=== PATIENT | male | born 1990 | race Caucasian/White ===

== ENCOUNTER 2018-02-08 07:44 | Emergency (ER) | payer OTHER ==
[~2018-02-08] VITALS: Ht 177.8 cm; Wt 86.0 kg
[~2018-02-08 07:44] MED LIST: AMOXICILLIN/CL875 MG OR; AMOXICILLIN500 MG PO; BENADRY2 EX; BENADRYL 50MG C50 MG PO; CLINDAMYCIN150 MG PO; MEDDOSEPAK PO; NO HOME MEDS
[2018-02-08] MEDS ORDERED: AUGMENTIN875TAB PO (08:02)
[2018-02-08 08:23] VITALS: BP 141/63
== END 2018-02-08 08:35 | disposition home or self-care (01) ==
LOC: ED 07:44
DX: J02.0 Streptococcal pharyngitis (principal); R50.9 Fever, unspecified; R51 Headache

== ENCOUNTER 2018-08-04 19:47 | Emergency (ER) | payer SELFPAY ==
[~2018-08-04] VITALS: Ht 177.8 cm; Wt 126.0 kg
[~2018-08-04 19:47] MED LIST changes: +AUGMENTIN875TAB PO
[2018-08-04] MEDS ORDERED: AMOXICILLIN875 MG PO (20:54)
[2018-08-04 20:58] VITALS: BP 148/95
== END 2018-08-04 21:09 | disposition home or self-care (01) | DRG 153 ==
LOC: ED 19:47
DX: J02.9 Acute pharyngitis, unspecified (principal); R50.9 Fever, unspecified

== ENCOUNTER 2019-04-06 | Emergency (ER) | payer SELFPAY ==
[~2019-04-06] MED LIST changes: +AMOXICILLIN875 MG PO
[2019-04-06 18:30] LABS: HEMOGLOBIN 15.6 g/dl (14.0-18.0); IMMATURE GRANULOCYTES 0.2 % (0.0-5.0); MEAN CORPUSCULAR HGB 27.6 pG CALC (26.0-32.0); MEAN CORPUSCULAR HGB CONC 33.2 g/L CALC (32.0-36.0); NEUT# 9.39 thou/uL (1.82-7.42); RED BLOOD COUNT 5.66 mill/uL (4.70-6.10); RED CELL DISTRI WIDTH 12.7 % (11.5-15.5)
[2019-04-06 18:57] LABS: ALBUMIN 4.5 g/dL (3.2-5.0); ALKALINE PHOSPHATASE 70 u/l (38-126); ANION GAP 15 (6-22 (CALC)); BILIRUBIN, TOTAL 0.7 mg/dL (0.0-1.4); BUN 17 mg/dL (9-20); BUN/CREATININE RATIO 20 (12-20 (CALC)); CARBON DIOXIDE 25 mmol/l (22-30); CHLORIDE 103 mmol/l (95-108); CREATININE 0.9 mg/dL (0.7-1.3); GFR > 60 ML/MIN (>=60 (CALC)); GFR FOR AFR.AMER. > 60 ML/MIN (>=60 (CALC)); LIPASE 72 u/l (23-300); POTASSIUM 4.7 mmol/l (3.5-5.1); SGOT/AST 34 u/l (17-59); SODIUM 139 mmol/l (137-146); TOTAL PROTEIN 7.9 g/dL (6.3-8.2)
[2019-04-06] MEDS ORDERED: PHENERGAN25 MG/TAB PO (19:51)
== END 2019-04-06 19:55 | disposition home or self-care (01) | DRG 392 ==
PROVIDERS: Family Medicine
DX: R10.13 Epigastric pain (principal)

== ENCOUNTER 2024-04-16 18:47 | Emergency (ER) | payer SELFPAY ==
[2024-04-16] VITALS (11 sets, daily range): BP systolic 104–130; BP diastolic 67–88
[~2024-04-16] VITALS: Ht 177.8 cm; Wt 112.0 kg
[~2024-04-16 18:47] MED LIST changes: +PHENERGAN25 MG/TAB PO
[2024-04-16] MEDS ORDERED: TENORMIN25 MG PO (19:22)
[2024-04-16 20:46] LABS: BASO% 0.3 % (0-3); EOS% 1.3 % (0-8); HEMATOCRIT 44.5 % (39.0-50.0); HEMOGLOBIN 14.6 g/dl (14.0-18.0); IMMATURE GRANULOCYTES 0.1 % (0.0-5.0); LYMPH% 25.8 % (15-41); MEAN CELL VOLUME 85.7 fL CALC (80.0-100.0); MEAN CORPUSCULAR HGB 28.1 pG CALC (26.0-32.0); MEAN CORPUSCULAR HGB CONC 32.8 g/dL CAL (32.0-36.0); MONO% 7.2 % (2-13); NEUT# 6.33 thou/uL (1.82-7.42); NEUT% 65.3 % (42-76); RED BLOOD COUNT 5.19 mill/uL (4.70-6.10); RED CELL DISTRI WIDTH 12.5 % (11.5-15.5)
[2024-04-16 21:00] LABS: ALBUMIN 4.3 g/dL (3.2-5.0); ALKALINE PHOSPHATASE 65 u/l (38-126); ANION GAP 10 (6-22 (CALC)); BILIRUBIN, TOTAL 0.7 mg/dL (0.2-1.3); BUN 13 mg/dL (9-20); BUN/CREATININE RATIO 14 (12-20 (CALC)); CARBON DIOXIDE 31 mmol/l (22-30); CHLORIDE 106 mmol/l (95-108); CPK 211 u/l (55-170); CREATININE 0.9 mg/dL (0.7-1.3); ESTIMATED GFR 116 ML/MIN (>=90 (CALC)); MAGNESIUM 2.3 mg/dL (1.6-2.3); POTASSIUM 4.3 mmol/l (3.5-5.1); SGOT/AST 37 u/l (17-59); SODIUM 142 mmol/l (137-146); TOTAL PROTEIN 7.3 g/dL (6.3-8.2)
== END 2024-04-16 22:02 | disposition home or self-care (01) | DRG 310 ==
LOC: ED 18:47
PROVIDERS: Family Medicine
DX: R00.1 Bradycardia, unspecified (principal); Z20.822 Contact with and (suspected) exposure to COVID-19